=== PATIENT | female | born 1965 | race African-American/Black ===

== ENCOUNTER 2017-04-26 07:44 | Outpatient (CLI) | payer OTHER | END 2017-04-26 07:45 | disposition home or self-care (01) | LOC: BICMAMMO 07:44 | PROVIDERS: ATTEND Family Medicine | DX: Z12.31 Encounter for screening mammogram for malignant neoplasm of breast (principal) | CPT/HCPCS: 77063; 77067; G0202 ==

== ENCOUNTER 2017-06-23 09:35 | Outpatient (CLI) | payer OTHER ==
[2017-06-23 12:06] LABS: #Basophils 0.1 thou/uL (0.0-0.2); #Eosinphils 0.2 thou/uL (0.0-0.7); #Monocytes 0.7 thou/uL (0.11-0.59); #Neutrophils 5.6 thou/uL (1.40-6.50); %Basophils 0.7 % (0.0-1.0); %Eosinophils 2.5 % (0.0-10.0); %Lymphocytes 23.7 % (21.0-51.0); %Monocytes 7.9 % (0.0-10.0); %Neutrophils 65.2 % (42.0-75.0); Mean Corpuscular HGB CONC 32.9 g/dL (32.0-36.0); Mean Corpuscular Hemoglobin 30.3 pg (27.0-31.0); Mean Corpuscular Volume 92.3 fl (81.0-99.0); Mean Platelet Volume 7.7 fL (7.4-10.4); Platelet Count 290 thou/uL (130-400); RBC Distribution Width 13.4 % (11.5-14.5); Red Blood Cell (RBC) Count 4.29 mill/uL (4.20-5.40); White Blood Cell (WBC) Count 8.6 thou/uL (4.8-10.8)
[2017-06-23 12:14] LABS: BHCG - Serum Negative (NEGATIVE); Pregs Control Background? CLEAR/WHITE (CLR/WHITE); Pregs Control Bar Appear? YES (CONTROL BAR)
[2017-06-23 12:25] LABS: Anion Gap 8 mmol/L (10-20); BUN (Urea Nitrogen) 20 mg/dL (9.8-20.1); Calc. Creatinine Clearance 0 mL/min (70-130); Calcium 9.9 mg/dL (7.8-10.44); Carbon Dioxide 28 mmol/L (22-29); Chloride 107 mmol/L (98-107); Estimated GFR-MDRD Greater than 90; Glucose 81 mg/dL (70-105); Potassium 4.2 mmol/L (3.5-5.1); Sodium 139 mmol/L (136-145)
--- NOTE | 2017-08-27 08:33 | EKG ---
Test Reason : Blood Pressure : / mmHG Vent. Rate : 053 BPM Atrial Rate : 053 BPM P-R Int : 200 ms QRS Dur : 086 ms QT Int : 418 ms P-R-T Axes : 061 065 065 degrees QTc Int : 392 ms Sinus bradycardia with Fusion complexes Nonspecific ST abnormality Abnormal ECG When compared with ECG of 11-JAN-2013 07:25, Fusion complexes are now Present Vent. rate has decreased BY 29 BPM Confirmed by NIMISHA OVALLE, VITO ([id number]) on 08/27/2017 8:33:29 AM Referred By: TAB Confirmed By:VITO BANSAL MD
== END 2017-06-23 09:36 | disposition home or self-care (01) ==
LOC: LABBT 09:35
PROVIDERS: ATTEND Podiatrist Foot & Ankle Surgery
DX: Z01.810 Encounter for preprocedural cardiovascular examination (principal); Z01.812 Encounter for preprocedural laboratory examination; M77.42 Metatarsalgia, left foot; M21.612 Bunion of left foot
CPT/HCPCS: 80048; 84703; 85025; 93005; 93010

== ENCOUNTER 2017-07-04 10:05 | Day surgery (SDC) | payer OTHER ==
[2017-06-23 10:16] VITALS: BMI 29.0
[2017-07-04] MEDS ORDERED: CEFAZOLIN/Water 2 GM/20 ML SYRINGE ONE (11:33)
[2017-07-04] MEDS ORDERED: Bupivacaine 0.5% 10 ML VIAL ONE ×2 (11:46→12:20)
[2017-07-04] MEDS ORDERED: Neomycin-Polymyxin 1 ML AMP ONE (11:46)
[2017-07-04] MEDS ORDERED: Fentanyl 100 MCG/2 ML VIAL ONE (11:49)
[2017-07-04] MEDS ORDERED: Midazolam HCl 2 mg/2 ml Vial ONE (11:49)
--- NOTE | 2017-07-04 14:24 | OP ---
DATE OF PROCEDURE: 07/04/2017 SURGEON: Fany Reese DPM. PREOPERATIVE DIAGNOSES: 1. Bunion, left foot. 2. Metatarsalgia, left foot. 3. Pain, left foot. POSTOPERATIVE DIAGNOSES: 1. Bunion, left foot. 2. Metatarsalgia, left foot. 3. Pain, left foot. PROCEDURE: Pierre bunionectomy, left foot with screw fixation, Doni osteotomy, left foot and fluoros copy left foot. INJECTABLES: 20 mL of 0.5% Marcaine. HEMOSTASIS: Pneumatic ankle tourniquet at 250 mmHg. ESTIMATED BLOOD LOSS: Less than 5 mL. ANESTHESIA: General with local foot block. MATERIALS: 2-0 Vicryl, 4-0 Vicryl, 4-0 Prolene and one 3.0 x 24 mm headless compression Synthes scre w. PROCEDURE: The patient was brought into the operating room and placed on the operating table in supi ne position. Well-padded pneumatic ankle tourniquet was placed about the patient's left ankle. Foll owing administration of IV anesthesia, local foot block was given utilizing 20 mL of 0.5% Marcaine pl ain. The foot was then scrubbed, prepped and draped in usual aseptic manner. Esmarch bandage was us ed to exsanguinate the patient's left foot and the pneumatic ankle tourniquet was then inflated to 25 0 mmHg, which provided adequate hemostasis throughout the entire procedure. Next, attention was then directed to the dorsal aspect of the patient's left foot where a 5 cm linear longitudinal incision w as made over the dorsal aspect of the patient's first metatarsophalangeal joint. The incision was de epened through the subcuticular structures with care being taken to retract all vital neurovascular s tructures. All bleeders were cauterized as necessary. Upon adequate exposure of the capsule, a T-ty pe capsulotomy was performed exposing the head of the first metatarsal as well as the base of proxima l phalanx. The prominent medial bony prominence was then carefully resected and passed from the oper ative field. Next, a Chevron type osteotomy was performed shifting the head of the first metatarsal into a more corrected lateral position was held in place with temporary fixation of a K-wire. Next, utilizing techniques and principles of [employer] a 3.0 x 24 mm headless compression screw was p laced across the osteotomy site from dorsal proximal to plantar distal. The remaining medial bone sh elf was then carefully resected and passed from the operative field. Through this same incision the adductor tendon was carefully released through the first interspace for its attachment at the base of proximal phalanx. The wound was irrigated with copious amounts of sterile normal saline and mixt ure. 2-0 Vicryl was used to reapproximate the capsular structures and the skin was closed with 4-0 V icryl for deep structures and 4-0 Prolene for skin closure, all in simple interrupted suture techniqu e. Next, attention was then directed to second metatarsal where a 4 cm linear longitudinal incision was made over the dorsal aspect of the second metatarsophalangeal joint. The incision was deepened t hrough subcuticular structures with care being taken to retract all vital neurovascular structures. Upon adequate exposure of the head of the second metatarsal a longitudinal capsulotomy was performed exposing the head. Next, utilizing a sagittal bone saw, an oblique cut was made at the neck of the s econd metatarsal shifted into a more corrected shortened position. Fixation was attempted utilizing a Synthes headless compression screw. However, due to a bone cyst fixation was not accomplished this way and no screw was placed across the osteotomy site. Fluoroscopy was used to assure proper alignm ent and correction, all were noted to be correct at this time. The wound was irrigated with copious amounts of sterile normal saline and mixture. The capsular structures were reapproximated and coa pted utilizing 2-0 Vicryl and the skin and subcuticular structures were closed utilizing 4-0 Vicryl a nd 4-0 Prolene in simple interrupted suture technique. A light compressive dressing was placed about the patient's two incisions and the pneumatic ankle tourniquet was released with prompt hyperemic re sponse noted to all digits of the left foot. DISCHARGE SUMMARY: The patient tolerated the procedure and anesthesia and was transferred to the rec overy room with vital signs stable and vascular status intact to all digits, left foot. Following a period of postoperative monitoring, the patient is to be discharged home. She is advised to be weigh tbearing only to the heel and can use crutches and a postoperative shoe. She will be seen within 1 w [place] of the procedure unless she has any problems prior to that.
--- NOTE | 2017-07-04 14:39 | RAD ---
LEFT FOOT TWO VIEWS: History: Status post bunionectomy. FINDINGS: Post-operative changes of the first metatarsal are noted. There is a surgical screw present with buni onectomy change. Incidental note is made of some lucency in the second metatarsal head which may be t he sequellae of an old injury. It does not appear acute. IMPRESSION: Post bunionectomy change. POS: [facility]
== END 2017-07-04 16:00 | disposition home or self-care (01) ==
LOC: SDC 10:05
PROVIDERS: ATTEND Podiatrist Foot & Ankle Surgery
PROC: 0QSP04Z Reposition Left Metatarsal with Internal Fixation Device, Open Approach (ICD-10-PCS; principal; 2017-07-04)
DX: M21.612 Bunion of left foot (principal); M77.42 Metatarsalgia, left foot; I10 Essential (primary) hypertension; Z79.899 Other long term (current) drug therapy
CPT/HCPCS: 76000; C1713; G8978-GP-CJ; G8979-GP-CJ; G8980-GP-CJ; J0131; J2250; J3010; J3490

== ENCOUNTER 2018-04-27 10:05 | Outpatient (CLI) | payer OTHER | END 2018-04-27 10:06 | disposition home or self-care (01) | LOC: BICMAMMO 10:05 | PROVIDERS: ATTEND Family Medicine | DX: Z12.31 Encounter for screening mammogram for malignant neoplasm of breast (principal) | CPT/HCPCS: 77063; 77067 ==

== ENCOUNTER 2019-05-06 13:34 | Outpatient (CLI) | payer OTHER ==
--- NOTE | 2019-05-06 16:19 | MMO ---
Bilateral MAMMO Bilat Screen [facility]. CLINICAL HISTORY: Patient is 54 years old and is seen for diagnostic exam. The patient has no family history of breast cancer. The patient has no personal history of cancer. VIEWS: The views performed were: bilateral craniocaudal with tomosynthesis and bilateral mediolateral oblique with tomosynthesis. FILMS COMPARED: The present examination has been compared to prior imaging studies performed at [facility] on 05/20/2002, 06/23/2003, 04/26/2017 and 04/27/2018. This study has been interpreted with the assistance of computer-aided detection. MAMMOGRAM FINDINGS: The breasts are almost entirely fat. There are no suspicious masses, suspicious calcifications, or new areas of architectural distortion. IMPRESSION: THERE IS NO MAMMOGRAPHIC EVIDENCE OF MALIGNANCY. A ROUTINE FOLLOW-UP MAMMOGRAM IN 1 YEAR IS RECOMMENDED. THE RESULTS OF THIS EXAM WERE SENT TO THE PATIENT. ACR BI-RADS Category 1 - Negative MAMMOGRAPHY NOTE: 1. A negative mammogram report should not delay a biopsy if a dominant of clinically suspicious mass is present. 2. Approximately 10% to 15% of breast cancers are not detected by mammography. 3. Adenosis and dense breasts may obscure an underlying neoplasm. Reported by: TAVO HELLER MD Electonically Signed: [id number]
== END 2019-05-06 13:35 | disposition home or self-care (01) ==
LOC: BICMAMMO 13:34
PROVIDERS: ATTEND Family Medicine
DX: Z12.31 Encounter for screening mammogram for malignant neoplasm of breast (principal)
CPT/HCPCS: 77063; 77067

== ENCOUNTER 2021-12-21 10:31 | Outpatient (CLI) | payer BC ==
[2021-12-21 12:12] LABS: #Basophils 0.1 10x3/uL (0.0-0.2); #Eosinphils 0.2 10x3/uL (0.0-0.5); #Monocytes 0.4 10x3/uL (0.0-1.1); #Neutrophils 4.6 10x3/uL (1.5-8.4); %Basophils 0.8 % (0.0-2.0); %Eosinophils 2.8 % (0.0-6.0); %Lymphocytes 26.6 % (18.0-47.0); %Neutrophils 63.5 % (40.0-75.0); Hemoglobin 13.1 g/dL (12.0-15.5); Mean Corpuscular HGB CONC 33.6 g/dL (32.0-36.0); Mean Corpuscular Hemoglobin 29.4 pg (27.0-33.0); Mean Corpuscular Volume 87.6 fl (81.6-98.3); Mean Platelet Volume 10.3 fl (7.4-10.4); Platelet Count 163 10x3/uL (150-450); Red Blood Cell (RBC) Count 4.45 10x6/uL (3.90-5.03); White Blood Cell (WBC) Count 7.2 10x3/uL (3.5-10.5)
[2021-12-21 12:29] LABS: Anion Gap 10 mmol/L (10-20); BUN (Urea Nitrogen) 12 mg/dL (9.8-20.1); Calc. Creatinine Clearance 0 mL/min (70-130); Calcium 9.4 mg/dL (7.8-10.44); Carbon Dioxide 29 mmol/L (22-29); Chloride 107 mmol/L (98-107); Estimated GFR 85; Glucose 101 mg/dL (70-105); Potassium 4.1 mmol/L (3.5-5.1); Sodium 142 mmol/L (136-145)
== END 2021-12-21 10:32 | disposition home or self-care (01) ==
LOC: LABBT 10:31
PROVIDERS: ATTEND Surgery
DX: Z01.818 Encounter for other preprocedural examination (principal); K42.9 Umbilical hernia without obstruction or gangrene; Z20.822 Contact with and (suspected) exposure to COVID-19
CPT/HCPCS: 80048; 85025; 87811; 93005; 93010

== ENCOUNTER 2021-12-24 05:49 | Day surgery (SDC) | payer BC, OTHER ==
[2021-12-22 12:59] VITALS: BMI 31.3
[2021-12-24] MEDS ORDERED: CEFAZOLIN 2 GM VIAL ONE (06:13)
[2021-12-24] MEDS ORDERED: Lidocaine 1% MPF 2 ML VIAL ONE (06:13)
[2021-12-24] MEDS ORDERED: Sodium Chloride 0.9% 100 ML ONE (06:13)
[2021-12-24] MEDS ORDERED: Bupivacaine/Epinephrine 0.25% 30 ML VIAL ONE (06:53)
[2021-12-24] MEDS ORDERED: fentaNYL Citrate/PF 100 MCG/2 ML SYRINGE ONE (07:24)
[2021-12-24] MEDS ORDERED: Famotidine/PF 20 mg/2ml Vial ONE (07:24)
[2021-12-24] MEDS ORDERED: Acetaminophen 500 MG TAB ONE (07:42)
[2021-12-24] MEDS ORDERED: Ketorolac Tromethamine 30 MG/ML VIAL ONE (08:08)
[2021-12-24] MEDS ORDERED: Dexamethasone 20 MG/5 ML VIAL ONE (08:08)
[2021-12-24] MEDS ORDERED: Metoclopramide HCl 10 MG/2 ML VIAL ONE (08:08)
[2021-12-24] MEDS ORDERED: Succinylcholine 200 MG/10 ml SYRINGE FS ONE (08:08)
[2021-12-24] MEDS ORDERED: Phenylephrine 10 MG/ML VIAL ONE (08:08)
[2021-12-24] MEDS ORDERED: PROPOFOL 200 MG/20 ML VIAL ONE (08:08)
[2021-12-24] MEDS ORDERED: Lidocaine 1% PF 5 ML VIAL ONE (08:08)
[2021-12-24] MEDS ORDERED: ePHEDrine 50 MG/ML VIAL ONE (08:08)
[2021-12-24] MEDS ORDERED: Ondansetron PF 4 MG/2 ML Vial ONE (08:08)
[2021-12-24] MEDS ORDERED: Albuterol Sulfate HFA (OR ONLY) ONE (08:16)
== END 2021-12-24 10:40 | disposition home or self-care (01) ==
LOC: SDC 05:49
PROVIDERS: ATTEND Surgery
PROC: 0WUF0JZ Supplement Abdominal Wall with Synthetic Substitute, Open Approach (ICD-10-PCS; principal; 2021-12-24)
DX: K42.9 Umbilical hernia without obstruction or gangrene (principal)
CPT/HCPCS: C1889; J0690; J3490; S0028